=== PATIENT | male | born 1985 | race Caucasian/White ===

== ENCOUNTER 2024-11-17 07:03 | Emergency (ER) | payer OTHER ==
[2024-11-17] MEDS ORDERED: NA CHLORIDE 0.9% 1,000 ML ONE (07:40)
[2024-11-17] MEDS ORDERED: FAMOTIDINE 20 MG/2 ML VIAL IV ONE (07:40)
[2024-11-17 07:53] LABS: Absolute Basophils 0.1 K/uL (0-0.5); Absolute Eosinophils 0.1 K/uL (0-0.5); Absolute Lymphocytes (CBC) 0.7 K/uL (0.7-4.9); Absolute Monocytes 0.6 K/uL (0.1-1.3); Absolute Neutrophil 10.3 K/uL (1.8-8.0); Basophils % 0.6 % (0-1.3); Hematocrit 45.4 % (39.6-49.0); Hemoglobin 15.2 g/dL (13.6-17.9); Lymphocytes % 5.6 % (15.3-44.8); MCH 28.5 pg (27.0-35.0); MCHC 33.4 g/dL (32.0-36.0); MCV 85.4 fL (80-100); MPV 7.3 fL (7.6-11.3); Monocytes % 4.8 % (3.3-12.3); Platelets 354 thou/uL (152-406); RBC Red Blood Cell Count 5.31 M/uL (4.33-5.43); Red Cell Distribution Width 14.7 % (12.1-15.2)
[2024-11-17 08:09] LABS: Albumin 3.6 g/dL (3.4-5.0); Albumin/Globulin Ratio 0.9 (1.1-1.8); Anion Gap 9.5 mEq/L (5.0-15.0); Bilirubin Total 0.5 mg/dL (0.2-1.0); Globulin 4.1 g/dL (2.3-3.5); Potassium 4.5 mEq/L (3.5-5.1); Protein, Total 7.7 g/dL (6.4-8.2)
--- NOTE | 2024-11-17 08:16 | ER ---
Nurse's Notes [facility] Name: Marcello Parker Age: 39 yrs Sex: Male : 1985 Arrival Date: 11/17/2024 Time: 07:03 Bed 14 Private MD: Diagnosis: Nausea with vomiting, unspecified Presentation: 11/17 07:06 Chief complaint: Patient states: he has been having vomiting and upper abdominal ap3 tightness since approx 0230 this morning. patient states that eating or drinking anything makes the vomiting worse. Coronavirus screen: At this time, the client does not indicate any symptoms associated with coronavirus-19. Ebola Screen: No symptoms or risks identified at this time. Initial Sepsis Screen: Does the patient meet any 2 criteria? HR > 90 bpm. Does the patient have a suspected source of infection? No. Patient's initial sepsis screen is negative. Risk Assessment: Do you want to hurt yourself or someone else? Patient reports no desire to harm self or others. Onset of symptoms was November 17, 2024 at 02:30. Care prior to arrival: Medication(s) given: zofran 4 mg, IV initiated. 20 GA, in the right antecubital area. 07:06 Method Of Arrival: EMS: [facility] ap3 07:06 Acuity: FLAKITO 3 ap3 Triage Assessment: 07:08 General: Appears in no apparent distress. Behavior is calm, cooperative, appropriate ap3 for age. Pain: Complains of pain in epigastric area, right upper quadrant and left upper quadrant Pain currently is 0 out of 10 on a pain scale. Aggravated by vomiting. Neuro: Level of Consciousness is awake, alert, obeys commands, Oriented to person, place, time, situation, Appropriate for age Speech is normal. Cardiovascular: Patient's skin is warm and dry. Respiratory: Airway is patent Respiratory effort is even, unlabored, Respiratory pattern is regular, symmetrical. GI: Reports upper abdominal pain, nausea, vomiting. Historical: - Allergies: 07:08 No Known Allergies; ap3 - Home Meds: 07:08 None [Active]; ap3 - PMHx: 07:08 None; ap3 - Immunization history:: Adult Immunizations up to date. - Infectious Disease History:: Denies. - Social history:: Smoking status: Reported history of juuling and/or vaping. Patient uses alcohol, only on a social basis. Screenin:09 [facility] ED Fall Risk Assessment (Adult) History of falling in the last 3 months, ap3 including since admission No falls in past 3 months (0 pts) Confusion or Disorientation No (0 pts) Intoxicated or Sedated No (0 pts) Impaired Gait No (0 pts) Mobility Assist Device Used No (0 pt) Altered Elimination No (0 pt) Score/Fall Risk Level 0 - 2 = Low Risk Oriented to surroundings, Maintained a safe environment, Educated pt \T\ family on fall prevention, incl call for assistance when getting out of bed, Assessed \T\ reinforced patient's understanding of fall precautions, Hourly rounding (assess needs \T\ fall precautionary measures) done, Used ambulatory aids as needed (educated on \T\ assisted with). Abuse screen: Denies threats or abuse. Nutritional screening: No deficits noted. Tuberculosis screening: No symptoms or risk factors identified. Vital Signs: 07:06 BP 147 / 119; Pulse 96; Resp 18; Temp 98.1(O); Pulse Ox 96% ; Weight 113.4 kg; Height 6 ap3 ft. 0 in. ; Pain 0/10; 07:25 BP 145 / 90; Pulse 84; Resp 17; Pulse Ox 96% ; ap3 07:06 Body Mass Index 33.91 (113.40 kg, 182.88 cm) ap3 07:06 Pain Scale: Adult ap3 ED Course: 07:06 Patient arrived in ED. ap3 07:08 Triage completed. ap3 07:08 iVnny Singh DO is Attending Physician. ms3 07:10 Susie Kaur, DHRUV is Primary Nurse. ap3 07:10 Arm band placed on right wrist. ap3 07:11 Client placed on continuous cardiac and pulse oximetry monitoring. NIBP monitoring ap3 applied. groundwater monitoring technician on. Pulse ox on. NIBP on. 08:16 Vj Schulte DO is Referral Physician. ms3 08:29 No provider procedures requiring assistance completed. ap3 08:30 Patient has correct armband on for positive identification. Provided Education on: ap3 discharge instructions. 08:30 IV discontinued, intact, bleeding controlled, No redness/swelling at site. Pressure ap3 dressing applied. Administered Medications: 07:47 Drug: Famotidine IVP 20 mg IVP once; dilute with 10 mL 0.9% NaCl; give over 2 minutes ap3 Route: IVP; Site: right antecubital; 08:29 Follow up: Response: No adverse reaction ap3 07:47 Drug: NS 0.9% IV 1000 ml IV at 1 bolus Per protocol; to be given as a bolus over 60 ap3 minutes Route: IV; Rate: 1 bolus; Site: right antecubital; 08:29 Follow up: IV Status: Completed infusion; IV Intake: 1000ml ap3 Medication: 08:30 VIS not applicable for this client. ap3 Intake: 08:29 IV: 1000ml; Total: 1000ml. ap3 Outcome: 08:16 Discharge ordered by MD. ms3 08:30 Discharged to home ambulatory, ap3 08:30 Condition: good 08:30 Discharge instructions given to patient, Instructed on discharge instructions, follow up and referral plans. medication usage, Demonstrated understanding of instructions, follow-up care, medications, Prescriptions given X 1, 08:30 Patient left the ED. ap3 Signatures: Susie Kaur RN RN ap3 Vinny Singh DO DO ms3 Corrections: (The following items were deleted from the chart) 07:08 07:08 PSHx: None; ap3 ap3
--- NOTE | 2024-11-17 08:16 | EDPHYS ---
Physician Documentation [facility] Name: Marcello Parker Age: 39 yrs Sex: Male : 1985 Arrival Date: 11/17/2024 Time: 07:03 Bed 14 Private MD: ED Physician Vinny Singh HPI: 11/17 07:37 This 39 yrs old Male presents to ER via EMS with complaints of Nausea/Vomiting. ms3 07:37 39-year-old male with no past medical history presents to the emergency department via [address] [facility] for nausea and vomiting that began at 230 this morning. Patient states he has had multiple episodes of vomiting. Patient states he is having 4/10 upper abdominal tightness. He denies fever, diarrhea, sick contacts. Patient endorses chills.. Historical: - Allergies: 07:08 No Known Allergies; ap3 - Home Meds: 07:08 None [Active]; ap3 - PMHx: 07:08 None; ap3 - Immunization history:: Adult Immunizations up to date. - Infectious Disease History:: Denies. - Social history:: Smoking status: Reported history of juuling and/or vaping. Patient uses alcohol, only on a social basis. ROS: 07:37 Constitutional: Negative for fever, and chills. Cardiovascular: Negative for chest ms3 pain, and palpitations. Respiratory: Negative for shortness of breath, cough, wheezing, and pleuritic chest pain, 07:37 Abdomen/GI: Positive for nausea, vomiting, Negative for diarrhea, Exam: 07:37 Constitutional: This is a well developed, well nourished patient who is awake, alert, ms3 and in no acute distress. Cardiovascular: Regular rate and rhythm with a normal S1 and S2. No gallops, murmurs, or rubs. Normal PMI, no JVD. No pulse deficits. Respiratory: Lungs have equal breath sounds bilaterally, clear to auscultation and percussion. No rales, rhonchi or wheezes noted. No increased work of breathing, no retractions or nasal flaring. MS/ Extremity: Pulses equal, no cyanosis. Neurovascular intact. Full, normal range of motion. 07:37 Abdomen/GI: Inspection: abdomen appears normal, Bowel sounds: normal, Palpation: mild abdominal tenderness, in the epigastric area, Vital Signs: 07:06 BP 147 / 119; Pulse 96; Resp 18; Temp 98.1(O); Pulse Ox 96% ; Weight 113.4 kg; Height 6 ap3 ft. 0 in. ; Pain 0/10; 07:25 BP 145 / 90; Pulse 84; Resp 17; Pulse Ox 96% ; ap3 07:06 Body Mass Index 33.91 (113.40 kg, 182.88 cm) ap3 07:06 Pain Scale: Adult ap3 MDM: 07:23 Medical Screening Exam initiated ms3 07:37 Differential diagnosis: Nonspecific abd pain, gastritis, pancreatitis, viral ms3 gastroenteritis, gastroenteritis. 08:10 ED course: Patient with mild elevation in white blood count likely secondary to emesis. ms3 Patient's abdomen remains benign.. ED course: On reevaluation patient is alert and oriented x 4, no apparent distress, nontoxic-appearing, speaking full sentences. Abdomen is benign. Patient is tolerating p.o. Patient to follow-up with primary care physician 2 to 3 days. All questions were answered. Return precautions discussed include worsening symptoms, inability to tolerate p.o., abdominal pain, or any other concerns.. 08:17 Data reviewed: vital signs, nurses notes, lab test result(s), and as a result, I will ms3 discharge patient. I considered the following discharge prescriptions or medication management in the emergency department Medications were administered in the Emergency Department. See MAR. Historians other than the Patient: EMS: [facility]. Counseling: I had a detailed discussion with the patient and/or guardian regarding the historical points, exam findings, and any diagnostic results supporting the discharge/admit diagnosis, lab results, the need for outpatient follow up, to return to the emergency department if symptoms worsen or persist or if there are any questions or concerns that arise at home. 11/17 07:36 Order name: CBC with Diff ms3 11/17 07:36 Order name: CMP; Complete Time: 08:10 ms3 11/17 07:36 Order name: Lipase; Complete Time: 08:10 ms3 11/17 07:36 Order name: IV Saline Lock; Complete Time: 07:41 ms3 11/17 07:36 Order name: Labs collected and sent; Complete Time: 07:47 ms3 Administered Medications: 07:47 Drug: Famotidine IVP 20 mg IVP once; dilute with 10 mL 0.9% NaCl; give over 2 minutes ap3 Route: IVP; Site: right antecubital; 08:29 Follow up: Response: No adverse reaction ap3 07:47 Drug: NS 0.9% IV 1000 ml IV at 1 bolus Per protocol; to be given as a bolus over 60 ap3 minutes Route: IV; Rate: 1 bolus; Site: right antecubital; 08:29 Follow up: IV Status: Completed infusion; IV Intake: 1000ml ap3 Disposition Summary: 11/17/24 08:16 Discharge Ordered Notes: Location: Home ms3 Condition: Stable ms3 Diagnosis - Nausea with vomiting, unspecified ms3 Followup: ms3 - With: Vj Schulte DO - When: 2 - 3 days - Reason: Recheck today's complaints Discharge Instructions: - Discharge Summary Sheet ms3 - Nausea and Vomiting, Adult ms3 Forms: - Medication Reconciliation Form ms3 - Antibiotic Education ms3 - Prescription Opioid Use ms3 - Patient Portal Instructions ms3 - Leadership Thank You Letter ms3 Prescriptions: - ondansetron 4 mg Oral Tablet,disintegrating - take 1 tablet ORAL route every 8 hours; 15 tablet; Refills: 0, Product ms3 Selection Permitted Signatures: Dispatcher [employer] Susie Tipton RN RN ap3 Vinny Singh DO DO ms3 Corrections: (The following items were deleted from the chart) 07:08 07:08 PSHx: None; ap3 ap3 07:36 07:36 CBC+H.LAB.BRZ ordered. EDMS EDMS 07:36 07:36 COMPREHENSIVE METABOLIC PANEL+C.LAB.BRZ ordered. EDMS EDMS 07:36 07:36 LIPASE+C.LAB.BRZ ordered. EDMS EDMS
[2024-11-17 08:35] VITALS: TEMP 98.1; O2SAT 96
[2024-11-17 08:36] VITALS: BP 145/90
[2024-11-17 08:48] LABS: Blood Morphology Comment NOT SEEN (NOT SEEN); Platelet Estimate ADEQ; White Blood Cell Scan OK (OK)
== END 2024-11-17 08:30 | disposition home or self-care (01) ==
LOC: ER 07:03
DX: R11.2 Nausea with vomiting, unspecified (principal); R10.816 Epigastric abdominal tenderness
CPT/HCPCS: 96361; 85025; 36415; 83690; 80053; 96374; 99285; J7030